=== PATIENT | female | born 1990 | race African-American/Black ===

== ENCOUNTER 2020-03-31 14:54 | Outpatient (CLI) | payer SELFPAY ==
[2020-03-31] MEDS ORDERED: LOW DOSE ASPIRI81 M1 (15:25)
[2020-03-31] MEDS ORDERED: PROTONIX40 MG PO (15:26)
[2020-03-31] MEDS ORDERED: NORMODYNE / TR200 MG PO (15:27)
[2020-03-31] MEDS ORDERED: AMOXICILLIN500 M1 (15:28)
[2020-03-31 15:55] LABS: BILIRUBIN NEGATIVE (NEGATIVE); KETONE NEGATIVE (NEGATIVE); NITRITE NEGATIVE (NEGATIVE); UROBILINOGEN NORMAL mg/dL (< 2)
[2020-03-31 15:56] LABS: EPITHELIAL CELLS 25-50 /hpf (0-5); WHITE CELLS - URINE 0-5 HPF (0-4)
[2020-03-31 15:57] LABS: BACTERIA MODERATE HPF (NONE SEEN)
[2020-03-31 16:50] LABS: HEMATOCRIT 37.7 % (36.0-48.0); MCH 32.8 pg (26.0-34.0); MCHC 34.5 g/dL (31.0-37.0); MCV 95.2 fL (80.0-100.0); RBC 3.96 10x6/uL (4.00-5.40); RDW 13.4 % (11.5-14.5); WBC 7.8 10x3/uL (4.8-10.8)
[2020-03-31 17:00] LABS: CALC OSMOLALITY 267 mosm/kg (275-300); CALCIUM 8.9 mg/dL (8.5-10.1); CARBON DIOXIDE 22.5 mmol/L (21.0-32.0); CHLORIDE - SERUM 105 mmol/L (98-107); CREATININE - SERUM 0.5 mg/dL (0.6-1.3); GLUCOSE 99 mg/dL (74-106); POTASSIUM - SERUM 3.7 mmol/L (3.5-5.1); SODIUM 135 mmol/L (136-145); UREA NITROGEN 6 mg/dL (7-18); eGFR NON AFRICAN AMERICAN > 90 mL/min (90-120)
[2020-03-31 17:03] LABS: URIC ACID 4.1 mg/dL (2.6-7.2)
[2020-04-02 10:26] LABS: PROTEIN - URINE 12.9 mg/dL (0.0-11.9)
== END 2020-03-31 17:25 | disposition home or self-care (01) ==
LOC: D.LDO 14:54
PROVIDERS: ATTEND Obstetrics & Gynecology
DX: O26.892 Other specified pregnancy related conditions, second trimester (principal); Z3A.25 25 weeks gestation of pregnancy; M79.89 Other specified soft tissue disorders; I10 Essential (primary) hypertension; E66.9 Obesity, unspecified

== ENCOUNTER → 2020-04-13 13:11 | Outpatient (CLI) | payer MEDICAID ==
[~2020-04-13 13:11] MED LIST: AMOXICILLIN500 M1; LOW DOSE ASPIRI81 M1; NORMODYNE / TR200 MG PO; PROTONIX40 MG PO
[2020-04-13 14:10] LABS: HEMOGLOBIN 13.2 g/dL (12-16); MCH 32.5 pg (26.0-34.0); MCHC 33.8 g/dL (31.0-37.0); MCV 96.1 fL (80.0-100.0); MEAN PLATELET VOLUME 10.4 fL (7.4-10.4); RBC 4.06 10x6/uL (4.00-5.40); RDW 13.6 % (11.5-14.5); WBC 7.7 10x3/uL (4.8-10.8)
[2020-04-13 14:17] LABS: CALC OSMOLALITY 269 mosm/kg (275-300); CALCIUM 9.2 mg/dL (8.5-10.1); CHLORIDE - SERUM 105 mmol/L (98-107); CREATININE - SERUM 0.6 mg/dL (0.6-1.3); POTASSIUM - SERUM 3.9 mmol/L (3.5-5.1); SODIUM 137 mmol/L (136-145); UREA NITROGEN 7 mg/dL (7-18); eGFR NON AFRICAN AMERICAN > 90 mL/min (90-120)
[2020-04-13 14:18] LABS: GLUCOSE 66 mg/dL (74-106)
[2020-04-13 14:21] LABS: ALT (SGPT) 16 U/L (10-68); URIC ACID 4.9 mg/dL (2.6-7.2)
[2020-04-13 14:25] LABS: BACTERIA MODERATE HPF (NONE SEEN); BILIRUBIN NEGATIVE (NEGATIVE); EPITHELIAL CELLS 0-5 /hpf (0-5); KETONE SMALL mg/dL (NEGATIVE); NITRITE NEGATIVE (NEGATIVE); WHITE CELLS - URINE 0-5 HPF (0-4)
[2020-04-13 14:26] LABS: UDS - AMPHET NEGATIVE QUAL (NEGATIVE); UDS - BARB NEGATIVE QUAL (NEGATIVE); UDS - BENZO NEGATIVE QUAL (NEGATIVE); UDS - COCAINE NEGATIVE QUAL (NEGATIVE); UDS - OPIATE NEGATIVE QUAL (NEGATIVE); UDS - PCP NEGATIVE QUAL (NEGATIVE); UDS - THC POSITIVE QUAL (NEGATIVE)
[2020-04-15 08:13] LABS: UDSC - AMPHET Negative ng/mL (Cutoff=1000); UDSC - BARB Negative ng/mL (Cutoff=300); UDSC - BENZO Negative ng/mL (Cutoff=300); UDSC - COC Negative ng/mL (Cutoff=300); UDSC - METH Negative ng/mL (Cutoff=300); UDSC - OPIATES Negative ng/mL (Cutoff=300); UDSC - PCP Negative ng/mL (Cutoff=25); UDSC - PROPOXY Negative ng/mL (Cutoff=300)
== END | disposition home or self-care (01) ==
LOC: D.LDO 13:11
PROVIDERS: ATTEND Obstetrics & Gynecology
DX: O26.899 Other specified pregnancy related conditions, unspecified trimester (principal)

== ENCOUNTER 2020-04-18 09:52 | Outpatient (CLI) | payer MEDICAID ==
[2020-04-18 11:30] LABS: BASOPHILS 0.1 % (0-2); EOSINOPHILS 0.5 % (0-7); HEMATOCRIT 39.3 % (36.0-48.0); HEMOGLOBIN 13.4 g/dL (12-16); IMMATURE GRANULOCYTES 0.6 % (0-5); LYMPHOCYTES 16.7 % (15-50); MCH 32.7 pg (26.0-34.0); MCHC 34.1 g/dL (31.0-37.0); MCV 95.9 fL (80.0-100.0); MEAN PLATELET VOLUME 10.5 fL (7.4-10.4); MONOCYTES 11.4 % (2-11); NEUTROPHILS 70.7 % (40-80); PLATELET COUNT 220 10x3/uL (130-400); RDW 13.5 % (11.5-14.5); WBC 10.5 10x3/uL (4.8-10.8)
[2020-04-18 11:42] LABS: CALC OSMOLALITY 275 mosm/kg (275-300); CARBON DIOXIDE 22.9 mmol/L (21.0-32.0); CHLORIDE - SERUM 104 mmol/L (98-107); CREATININE - SERUM 0.6 mg/dL (0.6-1.3); POTASSIUM - SERUM 3.8 mmol/L (3.5-5.1); SODIUM 139 mmol/L (136-145); UREA NITROGEN 12 mg/dL (7-18); eGFR NON AFRICAN AMERICAN > 90 mL/min (90-120)
[2020-04-18 11:44] LABS: GLUCOSE 68 mg/dL (74-106)
[2020-04-18 11:48] LABS: ALBUMIN 2.7 g/dL (3.4-5.0); ALKALINE PHOSPHATASE 108 U/L (30-120); ALT (SGPT) 22 U/L (10-68); PROTEIN - SERUM 6.1 g/dL (6.4-8.2); URIC ACID 4.8 mg/dL (2.6-7.2)
== END 2020-04-18 13:35 | disposition left against medical advice (07) ==
LOC: D.LDO 09:52
PROVIDERS: ATTEND Student in an Organized Health Care Education/Training Program
DX: O10.919 Unspecified pre-existing hypertension complicating pregnancy, unspecified trimester (principal)